=== PATIENT | male | born 1965 | race Caucasian/White ===

== ENCOUNTER → 2018-06-19 | Outpatient (CLI) | payer BC, OTHER | LOC: M SLEEP HO 14:14 | DX: G47.30 Sleep apnea, unspecified (principal) | CPT/HCPCS: G0399 ==

== ENCOUNTER → 2019-10-21 | Outpatient (REF) | payer OTHER | LOC: M LAB REF 15:31 | PROVIDERS: ATTEND Internal Medicine Endocrinology, Diabetes & Metabolism | DX: E04.1 Nontoxic single thyroid nodule (principal) ==

== ENCOUNTER → 2020-01-06 | Outpatient (CLI) | payer BC, OTHER ==
--- NOTE | 2020-01-07 00:54 | REP ---
Clinical: Pleurodynia and rib pain Technique: Frontal view of the chest with 5 views of the left hemithorax. Findings: Frontal view of the chest demonstrates no acute cardiopulmonary process. Multiple views of the left hemithorax demonstrates no obvious acute rib fracture or pathology. Impression: Normal left rib series Electronically Signed by Shad Herrera MD 01/07/2020 12:45 A
== END ==
LOC: M LRY 10:11
PROVIDERS: ATTEND Physician Assistant Medical
DX: R07.81 Pleurodynia (principal); S23.41XA Sprain of ribs, initial encounter; X58.XXXA Exposure to other specified factors, initial encounter; Y92.9 Unspecified place or not applicable

== ENCOUNTER → 2020-09-27 | Outpatient (CLI) | payer OTHER ==
[2020-09-27 17:10] LABS: BLOOD UREA NITROGEN 18 MG/DL (7-18); CALCIUM LEVEL 9.2 MG/DL (8.5-10.1); CARBON DIOXIDE LEVEL 27 MEQ/L (21-32); CHLORIDE LEVEL 103 MEQ/L (98-107); CREATININE FOR GFR 1.18 MG/DL (0.70-1.30); GLOMERULAR FILTRATION RATE > 60.0 (>56); GLUCOSE, FASTING 88 MG/DL (70-100); POTASSIUM SERUM 4.2 MEQ/L (3.5-5.1); SODIUM LEVEL 137 MEQ/L (136-145)
--- NOTE | 2020-09-29 08:22 | ECGEPIP ---
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
== END ==
LOC: M LAB 16:09
PROVIDERS: ATTEND Orthopaedic Surgery
DX: Z01.818 Encounter for other preprocedural examination (principal)

== ENCOUNTER → 2021-02-13 | Outpatient (CLI) | payer BC, OTHER ==
--- NOTE | 2021-02-14 13:53 | REPVR ---
PROCEDURE INFORMATION: Exam: MR Lumbar Spine Without Contrast Exam date and time: 02/13/2021 10:26 AM Age: 55 years old Clinical indication: Low back pain; Additional info: Disc degeneration, R/O hnp/stenosis TECHNIQUE: Imaging protocol: Multiplanar magnetic resonance images of the lumbar spine without intravenous contrast. COMPARISON: No relevant prior studies available. FINDINGS: Vertebrae: 2 mm of degenerative retrolisthesis of L3 on L4. No acute fracture seen. Spinal cord: The conus medullaris ends normally. Disc height loss and spondylosis is moderate at L3-L4 and L5-S1, mild elsewhere. Multilevel thoracolumbar endplate Schmorl's nodes. L1-L2: Mild disc bulge as well as mild to moderate facet arthropathy and ligamentum flavum buckling. The central spinal canal remains patent. The left lateral recess is narrowed near the left L2 nerve root. No significant foraminal stenoses. L2-L3: Mild diffuse disc bulge as well as moderate right and [id number] left facet arthropathy and ligamentum flavum buckling. The central spinal canal remains patent. Right lateral recess stenosis is mild. No significant neural foraminal stenoses. L3-L4: Slight retrolisthesis. Moderate diffuse disc osteophyte complex, facet arthropathy and ligamentum flavum buckling. No significant central spinal canal stenosis. The lateral recesses are narrowed near the L4 nerve roots. [id number] bilateral neural foraminal stenoses. L4-L5: Mild diffuse disc bulge as well as marked facet arthropathy and ligamentum flavum buckling. The central spinal canal remains patent. The lateral recesses are narrowed near the L5 nerve roots. [id number] bilateral neural foraminal stenoses. L5-S1: Marked diffuse disc osteophyte complex, facet arthropathy and ligamentum flavum buckling. The thecal sac is tapered by epidural fat. No evidence of S1 nerve root impingement. Mild right neural foraminal stenosis, the exiting right L5 nerve root may contact far lateral disc osteophyte. Soft tissues: Nonspecific edema in the back subcutaneous fat, potentially dependent/positional. IMPRESSION: 1. Moderate lumbar degenerative disc disease at L3-L4 and L5-S1. No focal disc herniation identified. 2. Left lateral recess stenosis at L1-L2. 3. Bilateral lateral recess stenoses at L3-L4. 4. Bilateral lateral recess stenoses at L4-L5. Electronically signed by: Carleen Bueno On 02/14/2021 13:52:37 PM
== END ==
LOC: M PLAIMG 09:32
PROVIDERS: ATTEND Physician Assistant
DX: M51.36 Other intervertebral disc degeneration, lumbar region (principal)

== ENCOUNTER → 2021-04-19 | Outpatient (CLI) | payer BC, OTHER ==
[2021-04-19 11:24] LABS: PLATELET COUNT, AUTOMATED 339 10^3/uL (150-450)
[2021-04-19 11:48] LABS: INR 1.09; PROTHROMBIN TIME 14.5 SECONDS (12.7-14.5)
[2021-04-19 11:49] LABS: PARTIAL THROMBOPLASTIN TIME 29.6 SECONDS (25.9-37.0)
[2021-04-19 12:01] LABS: COLLAGEN EPINEPHRINE 155 SECONDS (74-162)
== END ==
LOC: M LAB 10:25
PROVIDERS: ATTEND Orthopaedic Surgery
DX: M51.36 Other intervertebral disc degeneration, lumbar region (principal)

== ENCOUNTER → 2021-10-26 | Outpatient (CLI) | payer BC, OTHER ==
[~2021-10-26] MED LIST: ISOVUE-370 76% 100ML VIAL As Ordered ONE
== END ==
LOC: M RAD 10-24 17:18
PROVIDERS: ATTEND Nurse Practitioner Family
DX: E04.2 Nontoxic multinodular goiter (principal)
CPT/HCPCS: 70491; Q9967

== ENCOUNTER → 2021-11-08 | Outpatient (CLI) | payer BC, OTHER | LOC: M RAD 14:35 | PROVIDERS: ATTEND Nurse Practitioner Family | DX: R07.9 Chest pain, unspecified (principal); I70.0 Atherosclerosis of aorta; I25.10 Atherosclerotic heart disease of native coronary artery without angina pectoris ==

== ENCOUNTER → 2021-12-06 | Outpatient (REF) | payer BC, OTHER | LOC: M WUC 12:18 | PROVIDERS: ATTEND Physician Assistant | DX: R50.9 Fever, unspecified (principal) ==

== ENCOUNTER → 2023-06-02 | Outpatient (CLI) | payer BC, OTHER ==
[2023-06-02 17:14] LABS: PLATELET COUNT, AUTOMATED 304 10^3/uL (150-450)
[2023-06-02 17:31] LABS: INR 1.17; PROTHROMBIN TIME 14.6 SECONDS (12.5-14.5)
[2023-06-02 17:32] LABS: PARTIAL THROMBOPLASTIN TIME 28.8 SECONDS (24.8-34.2)
== END ==
LOC: M PLALAB 16:10
PROVIDERS: ATTEND Physician Assistant
DX: Z01.818 Encounter for other preprocedural examination (principal)